=== PATIENT | male | born 1990 | race Caucasian/White ===

== ENCOUNTER 2017-02-24 08:23 | Emergency (ER) | payer SELFPAY ==
[~2017-02-24] VITALS: Ht 182.9 cm; Wt 74.5 kg
[2017-02-24 08:25] VITALS: BP 126/76
[2017-02-24] MEDS ORDERED: DEXAMETHASONE 4 MG TABLET PO ONE (09:00)
[2017-02-24] MEDS ORDERED: BICILLIN-LA 1,200,000 UNITS/2 ML IM ONE (09:00)
[2017-02-24] MEDS ORDERED: DEXAMETHASONE 4 MG TABLET ONE (09:07)
== END 2017-02-24 09:16 | disposition home or self-care (01) ==
LOC: ED 09:09
DX: J02.0 Streptococcal pharyngitis (principal); Z88.8 Allergy status to other drugs, medicaments and biological substances
CPT/HCPCS: 96372; 99283; J0561

== ENCOUNTER 2017-03-18 20:13 | Emergency (ER) | payer OTHER ==
[~2017-03-18] VITALS: Ht 180.3 cm; Wt 75.8 kg
[2017-03-18 20:14] VITALS: BP 145/81
[2017-03-18] MEDS ORDERED: FLUORESCEIN OPHTHALMIC 1 MG STRIP ONE (20:32)
== END 2017-03-18 21:00 | disposition home or self-care (01) ==
LOC: ED 20:50
DX: H10.021 Other mucopurulent conjunctivitis, right eye (principal)
CPT/HCPCS: 99283